=== PATIENT | male | born 1960 | race African-American/Black ===

== ENCOUNTER 2022-09-30 21:32 | Inpatient (IN) | payer MEDICAID, OTHER ==
[~2022-09-30] VITALS: Ht 170.2 cm; Wt 65.9 kg
[2022-10-01] MEDS ORDERED: DiphenhydrAMINE HCL 50 MG/ML VIAL ONE (00:39)
[2022-10-01] MEDS ORDERED: LORazepam 2 MG/ML VIAL ONE (00:39)
[2022-10-01] MEDS ORDERED: HALOPERIDOL LACTATE 5 MG/ML VIAL ONE (00:40)
[2022-10-01] MEDS ORDERED: DiphenhydrAMINE HCL 50 MG/ML VIAL IM ONE (01:00)
[2022-10-01] MEDS ORDERED: LORazepam 2 MG/ML VIAL IM ONE (01:00)
[2022-10-01] MEDS ORDERED: HALOPERIDOL LACTATE 5 MG/ML VIAL IM ONE (01:00)
[2022-10-01 02:09] LABS: BASOPHILS % (AUTO) 0.6 % (0.0-2.0); EOSINOPHILS % (AUTO) 0.8 % (1.0-6.0); HEMATOCRIT 37.8 % (41-53); HEMOGLOBIN 12.5 g/dL (13.5-17.5); LYMPHOCYTES # (AUTO) 1.7 K/uL (1.0-4.8); LYMPHOCYTES % (AUTO) 18.7 % (22.0-44.0); MEAN CORPUSCULAR HEMOGLOBIN 29.1 pg (26.0-34.0); MEAN CORPUSCULAR VOLUME 88 fL (80-100); MONOCYTES # (AUTO) 0.6 K/uL (0.1-1.0); MONOCYTES % (AUTO) 6.6 % (2.0-9.0); NEUTROPHILS # (AUTO) 6.6 K/uL (1.8-7.7); NEUTROPHILS % (AUTO) 73.3 % (40.0-70.0); PLATELET COUNT (AUTO) 289 K/uL (150-450); RED BLOOD CELL COUNT(AUTO) 4.28 MIL/uL (4.50-5.90); RED CELL DISTRIBUTION WIDTH 13.6 % (11.5-14.5)
[2022-10-01 02:16] LABS: ANION GAP 10 mmol/L (8-16); CALCIUM, TOTAL 8.8 mg/dL (8.8-10.5); CARBON DIOXIDE 27 mmol/L (22-29); CHLORIDE 102 mmol/L (98-107); CREATININE 1.08 mg/dL (0.60-1.30); GLOMERULAR FILTR. RATE CALC > 60 mL/min (>60); GLUCOSE,RANDOM 89 mg/dL (70-110); POTASSIUM 3.6 mmol/L (3.5-5.1); SODIUM SERUM 139 mmol/L (136-145); UREA NITROGEN, BLOOD 19 mg/dL (7-18)
[2022-10-01 02:24] LABS: ALANINE AMINOTRANSFERASE 30 U/L (12-78); ALBUMIN 3.7 g/dL (3.4-5.0); ALKALINE PHOSPHATASE 61 U/L (46-116); ASPARTATE AMINOTRANSFERASE 39 U/L (15-37); BILIRUBIN,TOTAL 0.7 mg/dL (0.1-1.0)
[2022-10-01] MEDS ORDERED: MIDAZOLAM HCL 2 MG/2 ML VIAL ONE (03:26)
[2022-10-01] MEDS ORDERED: PERTUSS(ACELL),DIPH,TET VAC/PF 0.5 ML SYRINGE IM. ONE ×2 (03:27→04:00)
[2022-10-01] MEDS ORDERED: LIDOCAINE 1% 10 ML VIAL SQ ONE (03:30)
[2022-10-01] MEDS ORDERED: BACITRACIN 0.9 GM PACKET OINTMENT TP ONE (03:57)
[2022-10-01] MEDS ORDERED: MIDAZOLAM HCL 2 MG/2 ML VIAL IM ONE (04:00)
[2022-10-01] MEDS ORDERED: ZOLPIDEM TARTRATE 10 MG TABLET PO PRN (04:15)
[2022-10-01] MEDS ORDERED: HALOPERIDOL 5 MG TABLET PO PRN (04:15)
[2022-10-01] MEDS ORDERED: LORazepam 2 MG TABLET PO PRN (04:15)
[2022-10-01 04:59] LABS: COVID AG,FIA SOURCE NASAL SWAB
[2022-10-01] MEDS: ARIPiprazole 10 MG TABLET PO SCH (09:00)
[2022-10-01 10:03] VITALS: BP 104/64
[2022-10-01] MEDS: BACITRACIN 28 GM OINTMENT TP SCH (17:00)
[2022-10-01] MEDS ORDERED: INFLUENZA VIRUS VACCINE QVS 2022-23 (6MO+)/PF 60 MCG/0.5 ML SYRINGE IM. ONE (17:30)
[2022-10-01] MEDS ORDERED: PNEUMOCOCCAL VACCINE POLYVALENT 0.5 ML VIAL [PPSV23] IM. ONE (17:30)
[2022-10-02] MEDS ORDERED: CloNIDine HCL 0.1 MG TABLET PO PRN (07:15)
[2022-10-02] MEDS ORDERED: LOPERAMIDE HCL 2 MG CAPSULE PO PRN (07:15)
[2022-10-02] MEDS ORDERED: MAGNESIUM HYDROXIDE SUSPENSION 30 ML UDCUP PO PRN (07:15)
[2022-10-02] MEDS ORDERED: DOCUSATE SODIUM 100 MG CAPSULE PO PRN (07:15)
[2022-10-02] MEDS ORDERED: GuaiFENesin/D-METHORPHAN [SUGAR-FREE] 200-20MG/10 ML SYRUP UDCUP PO PRN (07:15)
[2022-10-02] MEDS ORDERED: MAG HYDROX/AL HYDROX/SIMETH ES 30 ML SUSPENSION UDCUP PO PRN (07:15)
[2022-10-02] MEDS ORDERED: ACETAMINOPHEN 325 MG TABLET PO PRN (07:15)
[2022-10-02] MEDS ORDERED: ONDANSETRON HCL 4 MG TABLET PO PRN (07:15)
[2022-10-02] MEDS ORDERED: IBUPROFEN 400 MG TABLET PO PRN (07:15)
[2022-10-02] MEDS ORDERED: PETROLATUM,WHITE 28 GM JELLY TP PRN (07:15)
[2022-10-02] MEDS ORDERED: ALBUTEROL SULFATE HFA 90 MCG/PUFF 8 GM INHALER IH PRN (07:15)
[2022-10-02] MEDS ORDERED: NICOTINE 14 MG/24 HOUR PATCH TD PRN (07:15)
[2022-10-02 08:05] VITALS: BP 115/68
[2022-10-02] MEDS: ARIPiprazole 10 MG TABLET PO SCH (08:20)
[2022-10-02] MEDS: BACITRACIN 28 GM OINTMENT TP SCH ×2 (08:20→17:01)
[2022-10-02] MEDS: ARIPiprazole 5 MG TABLET PO SCH ×2 (10:15→17:01)
[2022-10-02 20:41] VITALS: BP 121/77
[2022-10-03] MEDS: ARIPiprazole 5 MG TABLET PO SCH ×2 (09:00→17:00)
[2022-10-03] MEDS: BACITRACIN 28 GM OINTMENT TP SCH ×2 (10:06→19:05)
[2022-10-03 20:52] VITALS: BP 125/70
[2022-10-04] MEDS: BACITRACIN 28 GM OINTMENT TP SCH (08:24)
[2022-10-04] MEDS: ARIPiprazole 5 MG TABLET PO SCH (08:24)
[2022-10-04 10:16] VITALS: BP 118/68
[2022-10-04] MEDS ORDERED: ARIP5TAB37 PO (11:25)
== END 2022-10-04 13:26 | disposition home or self-care (01) | DRG 750 ==
LOC: EMS 21:36 → B3A 10-01 05:44
PROVIDERS: ADMIT Psychiatry & Neurology Psychiatry; ATTEND Psychiatry & Neurology Psychiatry
DX: F20.9 Schizophrenia, unspecified (principal); D64.9 Anemia, unspecified; Z91.14 Patient's other noncompliance with medication regimen; F41.9 Anxiety disorder, unspecified; G47.00 Insomnia, unspecified; S01.81XA Laceration without foreign body of other part of head, initial encounter; Z20.822 Contact with and (suspected) exposure to COVID-19; Y04.0XXA Assault by unarmed brawl or fight, initial encounter; Y93.89 Activity, other specified; Y92.89 Other specified places as the place of occurrence of the external cause; Y99.8 Other external cause status; Z79.899 Other long term (current) drug therapy
CPT/HCPCS: 80053; 85025; 90715; G0480; J1200; J1630; J2060; J2250; J3490